=== PATIENT | male | born 1965 | race Caucasian/White ===

== ENCOUNTER 2016-04-16 10:37 | Observation (INO) | payer SELFPAY ==
[~2016-04-16] VITALS: Ht 180.3 cm; Wt 99.0 kg
[2016-04-16 10:40] VITALS: BP 181/115; PULSE 75; RESP 20; TEMP 98.1; O2SAT 97
[2016-04-16 11:09] VITALS: RESP 18; O2SAT 99
[2016-04-16] MEDS ORDERED: KETOROLAC TROMETHAMINE 30 MG/ML (IVP) VIAL IV PUSH ONE (11:15)
[2016-04-16] MEDS ORDERED: SODIUM CHLORIDE 0.9% FLUSH 5 ML FLUSH IVF PRN ×2 (11:15→14:15)
[2016-04-16 11:38] LABS: AUTOMATED NEUTROPHIL # 6.4 TH/MM3 (1.8-7.7); BASOPHIL % 0.5 % (0.0-2.0); EOSINOPHIL # 0.2 TH/MM3 (0-0.4); EOSINOPHIL % 2.3 % (0.0-4.0); HEMATOCRIT 45.4 % (39.0-51.0); HEMO FLAGS DIFF FINAL; LYMPHOCYTE # 2.3 TH/MM3 (1.0-4.8); MEAN CORPUSCULAR HEMOGLOBIN 29.2 PG (27.0-34.0); MEAN CORPUSCULAR HGB CONC 34.8 % (32.0-36.0); MONO % 11.2 % (0.0-8.0); PLATELET COUNT 207 TH/MM3 (150-450); RED CELL DISTRIBUTION WIDTH 12.9 % (11.6-17.2); WHITE BLOOD COUNT 10.1 TH/MM3 (4.0-11.0)
[2016-04-16 11:50] LABS: PROTHROMBIN TIME - PATIENT 10.7 SEC (9.8-11.6)
[2016-04-16] MEDS: RESP: ALBUTEROL 2.5 MG/IPRATROPIUM 0.5 MG NEB (SCH) INH (11:50)
--- NOTE | 2016-04-16 11:50 | RADRPT ---
EXAM DATE/TIME: 04/16/2016 11:47 [place] COMPARISON: No previous studies available for comparison. INDICATIONS : Chest pain, cough and congestion. MEDICAL HISTORY : Hypertension. Chronic obstructive pulmonary disease. Paget's disease. SURGICAL HISTORY : None. ENCOUNTER: Initial ACUITY: 2 days PAIN SCORE: 3/10 LOCATION: chest FINDINGS: PA and lateral views of the chest demonstrate the lungs to be symmetrically aerated without evidence of mass, infiltrate or effusion. The cardiomediastinal contours are unremarkable. Osseous structure s are intact with deformity of multiple right ribs #4 and 5 which suggests either remote trauma or th oracotomy.. CONCLUSION: No acute disease. Pérez Morales MD on April 16, 2016 at 11:48 Board Certified Radiologist. This report was verified electronically.
[2016-04-16 11:56] LABS: ANION GAP 7 MEQ/L (5-15); AST (GOT) 31 U/L (15-37); BICARBONATE 27.7 MEQ/L (21.0-32.0); BLOOD UREA NITROGEN 14 MG/DL (7-18); CHLORIDE 105 MEQ/L (98-107); GLOMERULAR FILTRATION RATE 93 ML/MIN (>89); POTASSIUM 4.4 MEQ/L (3.5-5.1); SODIUM (NA) 140 MEQ/L (136-145)
[2016-04-16 12:01] LABS: ALKALINE PHOSPHATASE 133 U/L (45-117); ALT (GPT) 54 U/L (12-78); TOTAL BILIRUBIN ADULT 0.7 MG/DL (0.2-1.0)
--- NOTE | 2016-04-16 12:58 | PD ---
HPI Chief Complaint: Chest Pain Time Seen by Provider: 11:00 Travel History International Travel<30 days: No Contact w/Intl Traveler<30days: No Traveled to known affect area: No History of Present Illness HPI Patient is a 51-year-old male who comes in complaining of chest pain as well as feeling unwell. He continues to say he just does not feel well, and has a hard time explaining exactly what is going on. He does say he has some right-sided chest pain. He has had a cough with some shortness of breath. He says this has been going on for several days now. His significant other says that she was checking his pulse and his oxygen saturation this weekend because she was worried about him and she noticed that his pulse dropped into the 30s and his oxygen saturation was low. She convinced him to come in to get checked out. [facility] Past Medical History COPD: Yes Diabetes: No Hepatitis: Yes Hypertension: Yes Respiratory: Yes (COPD) Thyroid Disease: Yes Tetanus Vaccination: Unknown Influenza Vaccination: No Past Surgical History Surgical History: No Previous Surgery Social History Alcohol Use: Yes (SOCIAL) Tobacco Use: Yes Substance Use: Yes (MARIJUANA) Allergies-Medications (Allergen,Severity, Reaction): Coded Allergies: No Known Allergies (Unverified , 04/16/16) Reported Meds & Prescriptions Reported Meds & Active Scripts Active Doxycycline Hyclate 100 Mg Tab 100 Mg PO BID 10 Days Prednisone 20 Mg Tab 20 Mg PO BID Review of Systems Except as stated in HPI: all other systems reviewed are Neg General / Constitutional: No: Fever, Chills HENT: No: Headaches, Lightheadedness Cardiovascular: Positive: Chest Pain or Discomfort Respiratory: Positive: Cough, Shortness of Breath Gastrointestinal: No: Nausea, Vomiting Musculoskeletal: Positive: Myalgias Skin: No Rash, No Change in Pigmentation Neurologic: No: Weakness, Dizziness Physical Exam Narrative GENERAL: Awake and alert, in no acute distress. SKIN: Warm and dry. HEAD: Atraumatic. Normocephalic. EYES: Pupils equal and round. No scleral icterus. ENT: Mucous membranes pink and moist. NECK: Trachea midline. No JVD. CARDIOVASCULAR: Regular rate and rhythm. No murmur appreciated. RESPIRATORY: No accessory muscle use. Coarse breath sounds throughout the lungs. Breath sounds equal bilaterally. GASTROINTESTINAL: Abdomen soft, non-tender, nondistended. MUSCULOSKELETAL: No obvious deformities. No clubbing. No cyanosis. No edema. NEUROLOGICAL: Awake and alert. No obvious cranial nerve deficits. Motor grossly within normal limits. Normal speech. PSYCHIATRIC: Appropriate mood and affect; insight and judgment normal. Data Data Last Documented VS Vital Signs Date Time Temp Pulse Resp B/P Pulse Ox O2 Delivery O2 Flow Rate FiO2 04/16/16 11:09 18 99 Room Air 04/16/16 10:56 70 04/16/16 10:40 98.1 181/115 Orders B-Type Natriuretic Peptide (04/16/16 11:06) Complete Blood Count With Diff (04/16/16 11:06) Comprehensive Metabolic Panel (04/16/16 11:06) Prothrombin Time / Inr (Pt) (04/16/16 11:06) Act Partial Throm Time (Ptt) (04/16/16 11:06) Troponin I (04/16/16 11:06) Ecg Monitoring (04/16/16 11:06) Bilateral Bp Monitoring (04/16/16 11:06) Iv Access Insert/Monitor (04/16/16 11:06) Oximetry (04/16/16 11:06) Sodium Chloride 0.9% Flush (Ns Flush) (04/16/16 11:15) Chest, Pa & Lat (04/16/16 11:06) Ketorolac Inj (Toradol Inj) (04/16/16 11:15) Albuterol-Ipratropium Neb (Duoneb Neb) (04/16/16 11:15) Influenzae A/B Antigen (04/16/16 11:06) Electrocardiogram (04/16/16 11:00) Aspirin Chew (Aspirin Chew) (04/16/16 13:00) Admit Order (Ed Use Only) (04/16/16 ) Labs Laboratory Tests Test 04/16/16 11:05 White Blood Count 10.1 TH/MM3 Red Blood Count 5.40 MIL/MM3 Hemoglobin 15.8 GM/DL Hematocrit 45.4 % Mean Corpuscular Volume 84.0 FL Mean Corpuscular Hemoglobin 29.2 PG Mean Corpuscular Hemoglobin 34.8 % Concent Red Cell Distribution Width 12.9 % Platelet Count 207 TH/MM3 Mean Platelet Volume 8.5 FL Neutrophils (%) (Auto) 63.0 % Lymphocytes (%) (Auto) 23.0 % Monocytes (%) (Auto) 11.2 % Eosinophils (%) (Auto) 2.3 % Basophils (%) (Auto) 0.5 % Neutrophils # (Auto) 6.4 TH/MM3 Lymphocytes # (Auto) 2.3 TH/MM3 Monocytes # (Auto) 1.1 TH/MM3 Eosinophils # (Auto) 0.2 TH/MM3 Basophils # (Auto) 0.0 TH/MM3 CBC Comment DIFF FINAL Differential Comment Prothrombin Time 10.7 SEC Prothromb Time International 1.0 RATIO Ratio Activated Partial 26.0 SEC Thromboplast Time Sodium Level 140 MEQ/L Potassium Level 4.4 MEQ/L Chloride Level 105 MEQ/L Carbon Dioxide Level 27.7 MEQ/L Anion Gap 7 MEQ/L Blood Urea Nitrogen 14 MG/DL Creatinine 0.86 MG/DL Estimat Glomerular Filtration 93 ML/MIN Rate Random Glucose 96 MG/DL Calcium Level 8.9 MG/DL Total Bilirubin 0.7 MG/DL Aspartate Amino Transf 31 U/L (AST/SGOT) Alanine Aminotransferase 54 U/L (ALT/SGPT) Alkaline Phosphatase 133 U/L Troponin I LESS THAN 0.02 NG/ML B-Type Natriuretic Peptide 29 PG/ML Total Protein 7.7 GM/DL Albumin 3.9 GM/DL [facility] Medical Decision Making Medical Screen Exam Complete: Yes Emergency Medical Condition: Yes Interpretation(s) ECG shows normal sinus rhythm, no ST elevation or depression. Differential Diagnosis Pneumonia versus bronchitis versus COPD exacerbation versus ACS versus NSTEMI Narrative Course Patient is a 51-year-old male who comes in complaining of chest pain and feeling unwell. Exam shows coarse breath sounds on the lungs. IV established, patient connected to the satellite project site monitor. Patient given DuoNeb nebs. X-ray performed shows no acute abnormalities, old rib fractures present.. Labs sent show no acute abnormalities. Patient given aspirin. He reports minimal relief after duo nebs. Patient will be placed in observation for further management of chest pain. Diagnosis Primary Impression: Chest pain, atypical Admitting Information Admitting Physician Requests: Observation Scripts Doxycycline Hyclate 100 Mg [id number] Mg PO BID 10 Days Prov:Benjy Ortiz 04/16/16 Prednisone 20 Mg Tab20 Mg PO BID #10 TAB Ref 0 Prov:Benjy Ortiz 04/16/16 Chloe Ledezma MD Apr 16, 2016 12:58
[2016-04-16] MEDS ORDERED: ASPIRIN 81 MG CHEW TAB CHEW ONE (13:00)
[2016-04-16 13:33] VITALS: BP 141/87; PULSE 76; RESP 18; O2SAT 98
--- NOTE | 2016-04-16 14:12 | EKG ---
Date Performed: 04/16/2016 Time Performed: 11:00:11 PTAGE: 51 years EKG: Sinus rhythm NONSPECIFIC T-WAVE ABNORMALITY BORDERLINE ECG NO PREVIOUS TRACING DOCTOR: Son Hernandez Interpretating Date/Time 04/16/2016 14:10:50
[2016-04-16] MEDS ORDERED: ALPRAZolam 0.25 MG TAB PO PRN (14:15)
[2016-04-16] MEDS ORDERED: ONDANSETRON HCL 4 MG/2 ML VIAL IV PRN (14:15)
[2016-04-16] MEDS ORDERED: ACETAMINOPHEN/HYDROcodone 325 MG/7.5 MG TAB PO PRN (14:15)
[2016-04-16] MEDS ORDERED: RESP: ALBUTEROL 2.5 MG/IPRATROPIUM 0.5 MG NEB (PRN) INH (14:15)
[2016-04-16] MEDS ORDERED: ACETAMINOPHEN 500 MG CPLT PO PRN (14:15)
[2016-04-16] MEDS ORDERED: methylPREDNISolone SOD SUCC 125 MG/2 ML VIAL IV PUSH ONE (14:15)
[2016-04-16] MEDS ORDERED: RESP: ALBUTEROL 2.5 MG/IPRATROPIUM 0.5 MG NEB (SCH) INH ONE (14:15)
--- NOTE | 2016-04-16 14:21 | HHI.HP ---
HPI Primary Care Physician No Primary Care Physician Chief Complaint Chest pain History of Present Illness This is a 51-year-old male presents to the ED complaining of a right-sided chest pain when he coughs. He states that he has had a productive cough for about a week. The sputum has been soares and brownish. As the warm a couple times really cannot recall having a fever. He states he has been wheezing a lot. He states in the past she was told he has COPD. Denies history of CAD. He has been a little short of breath. No nausea or diaphoresis. He states that his girlfriend is a nurse. He states that she put a pulse oximeter on him and said the numbers were low. She then told him to go to the ED. Review of Systems General: Patient denies fevers, chills recent, and recent travel HEENT: Patient denies headache, sore throat, difficulty swallowing. Cardiovascular: Has the chest discomfort as mentioned above. Denies sensation of heart beating rapidly or irregularly. Denies diaphoresis. No syncope. Respiratory: Patient has been short of breath. He has been coughing for week. He has had a productive cough. He states the color of the sputum has been soares to brown. He has been wheezing. No hemoptysis. He complains of right-sided chest pain when he coughs. GI: Patient denies nausea, vomiting, diarrhea, abdominal pain, bloody stools. Musculoskeletal: Patient denies joint pain or edema. Denies calf pain or edema. Neurovascular: Patient denies numbness, tingling, weakness in extremities. Denies headache. Endocrine: Denies polyuria and polydipsia. Hematologic: Denies easy bruising. Skin: Denies rash or itching. Past Family Social History Allergies: Coded Allergies: No Known Allergies (Unverified , 04/16/16) Past Medical History Paget's disease. Denies hypertension, hyperlipidemia, diabetes, CAD. Past Surgical History Left hip fracture as a child. Hardware has since been removed. Reported Medications Reported Meds & Active Scripts Active No Active Prescriptions or Reported Medications Active Ordered Medications Current Medications Medications (Trade) Dose Ordered Sig/Manoj Route Start Time Stop Time Status Last Admin (NS Flush) 2 ml UNSCH PRN IVF 04/16/16 11:15 04/16/16 11:13 (Duoneb Neb) 1 ampule STAT ONCE INH 04/16/16 14:15 04/16/16 14:16 UNV (SoluMEDROL INJ) 125 mg NOW ONCE IV PUSH 04/16/16 14:15 04/16/16 14:16 UNV Family History 2 brothers of CAD. One at age 50 and the other age of 53. He states that his father had a pacemaker. Social History Patient has slowed down his tobacco intake. For the last 3 months he has been smoking 2-3 cigarettes a day but prior that he smoked about 1-1/2 packs of cigarettes a day for 25 years. He drinks on average sixpack of beer a day. Smokes marijuana once a week. He lives with his girlfriend. Physical Exam Vital Signs Vital Signs Date Time Temp Pulse Resp B/P Pulse Ox O2 Delivery O2 Flow Rate FiO2 04/16/16 13:35 18 04/16/16 13:33 76 18 141/87 98 Room Air 04/16/16 11:09 18 99 Room Air 04/16/16 10:56 70 18 97 Room Air 04/16/16 10:40 98.1 75 20 181/115 97 Room Air Physical Exam GENERAL: This is a well-nourished, well-developed patient, in no apparent distress. Patient speaks in clear complete sentences. Patient is pleasant. He is coughing quite a bit. HEENT: Head is atraumatic and normocephalic. Neck is supple without lymphadenopathy and trachea is midline. No JVD or carotid bruits. CARDIOVASCULAR: Regular rate and rhythm without murmurs, gallops, or rubs. RESPIRATORY: Right-sided chest wall tenderness. He states the same type of discomfort he has when he coughs. There are some scattered rhonchi and wheezing. No use of accessory muscles. GASTROINTESTINAL: Abdomen is nontender, nondistended. Abdomen soft. No obvious pulsatile mass or bruit. No CVA tenderness. Strong femoral pulses bilaterally. Normal bowel sounds in all quadrants. MUSCULOSKELETAL: Patient is moving upper and lower extremities freely. No calf tenderness or edema, no Homans sign. Strong pulses in upper and lower extremities. NEUROLOGICAL: Patient is alert and oriented. Cranial nerves 2-12 are grossly intact. No focal deficits and speech is clear. SKIN: No rash and turgor is normal. Laboratory Laboratory Tests Test 04/16/16 11:05 White Blood Count 10.1 Red Blood Count 5.40 Hemoglobin 15.8 Hematocrit 45.4 Mean Corpuscular Volume 84.0 Mean Corpuscular Hemoglobin 29.2 Mean Corpuscular Hemoglobin 34.8 Concent Red Cell Distribution Width 12.9 Platelet Count 207 Mean Platelet Volume 8.5 Neutrophils (%) (Auto) 63.0 Lymphocytes (%) (Auto) 23.0 Monocytes (%) (Auto) 11.2 Eosinophils (%) (Auto) 2.3 Basophils (%) (Auto) 0.5 Neutrophils # (Auto) 6.4 Lymphocytes # (Auto) 2.3 Monocytes # (Auto) 1.1 Eosinophils # (Auto) 0.2 Basophils # (Auto) 0.0 CBC Comment DIFF FINAL Differential Comment Prothrombin Time 10.7 Prothromb Time International 1.0 Ratio Activated Partial 26.0 Thromboplast Time Sodium Level 140 Potassium Level 4.4 Chloride Level 105 Carbon Dioxide Level 27.7 Anion Gap 7 Blood Urea Nitrogen 14 Creatinine 0.86 Estimat Glomerular Filtration 93 Rate Random Glucose 96 Calcium Level 8.9 Total Bilirubin 0.7 Aspartate Amino Transf 31 (AST/SGOT) Alanine Aminotransferase 54 (ALT/SGPT) Alkaline Phosphatase 133 Troponin I LESS THAN 0.02 B-Type Natriuretic Peptide 29 Total Protein 7.7 Albumin 3.9 Date/Time Procedure Status Source Growth 04/16/16 11:10 Influenza Types A,B Antigen (CHANTE) - Final Complete Nasal Washing NEGATIVE FOR FLU A AND B ANTIGEN.... Result Diagram: 04/16/16 1105 04/16/16 1105 Imaging Last 24 hours Impressions Chest X-Ray 04/16/16 1106 Signed Impressions: Service Date/Time: Saturday, April 16, 2016 11:47 - CONCLUSION: No acute disease. Pérez Morales MD Course Initial EKG is sinus rhythm without significant ST segment depressions or elevations. Patient was given a DuoNeb in the emergency department. He states he started feeling a little better but it made him cough more. Patient was given Solu- Medrol 125 mg IV at this time and another DuoNeb. Assessment and Plan Assessment and Plan * Chest pain: Patient's discomfort appears to be related to respiratory issues. He will be seen by Dr. Huan Nayak of cardiology and the chest pain center. Dr. Nayak will decide if the patient needs further cardiac workup. He has been given Solu-Medrol IV and DuoNeb's. Likely prescriptions of antibiotic and steroids. He needs to quit smoking. He will need to follow-up with local PCP. * Bronchitis: Patient was given antibiotic prescription as well as steroids. He will need to quit smoking. * Tobacco abuse: Patient has been counseled on the importance of smoking cessation. Benjy Ortiz Apr 16, 2016 14:21
[2016-04-16 15:53] LABS: CREATINE KINASE 49 U/L (39-308)
[2016-04-16 16:00] VITALS: BP 142/78; PULSE 74; RESP 18; O2SAT 93
[2016-04-16] MEDS ORDERED: PRED20 PO (16:01)
[2016-04-16] MEDS ORDERED: DOXY100T PO (16:01)
--- NOTE | 2016-04-16 16:02 | HHI.DCPOC ---
Discharge Care Plan Diagnosis: (1) Bronchitis (2) Chest pain, atypical (3) Tobacco abuse Goals to Promote Your Health * To prevent worsening of your condition and complications * To maintain your health at the optimal level Directions to Meet Your Goals Take your medications as prescribed Follow your dietary instruction Follow activity as directed Keep your appointments as scheduled Take your immunizations and boosters as scheduled If your symptoms worsen call your PCP, if no PCP go to Urgent Care Center or Emergency Room Smoking is Dangerous to Your Health. Avoid second hand smoke Call the 24-hour hour crisis hotline for domestic abuse at Benjy Ortiz Apr 16, 2016 16:02
[2016-04-16] MEDS ORDERED: SODIUM CHLORIDE 0.9% FLUSH 5 ML FLUSH IVF SCH (21:00)
[2016-04-16 21:05] VITALS: O2SAT 93
[2016-04-17] MEDS ORDERED: ASPIRIN 325 MG TAB PO SCH (09:00)
--- NOTE | 2016-04-17 12:39 | EKG ---
Date Performed: 04/16/2016 Time Performed: 14:28:47 PTAGE: 51 years EKG: Sinus rhythm NONSPECIFIC T-WAVE ABNORMALITY BORDERLINE ECG Since PREVIOUS TRACING , no significant change noted PREVIOUS TRACIN04/16/2016 11.00 DOCTOR: Kandace Jenkins Interpretating Date/Time 04/17/2016 12:38:39
== END 2016-04-16 17:30 | disposition home or self-care (01) ==
LOC: NEPA 10:37 → NEDA 13:00
PROVIDERS: ADMIT Internal Medicine Cardiovascular Disease; ATTEND Internal Medicine Cardiovascular Disease
DX: J40 Bronchitis, not specified as acute or chronic (principal); R07.89 Other chest pain; I10 Essential (primary) hypertension; F12.90 Cannabis use, unspecified, uncomplicated; F17.200 Nicotine dependence, unspecified, uncomplicated
CPT/HCPCS: 71020; 80053; 82550; 83880; 84484; 85025; 85610; 85730; 87804; 93005; 94640; 94664; 96374; 99285; G0378; J1885; J2930

== ENCOUNTER 2017-04-02 06:07 | Day surgery (SDC) | payer OTHER ==
[~2017-04-02] VITALS: Ht 180.3 cm; Wt 100.0 kg
[~2017-04-02 06:07] MED LIST: DOXY100T PO; PRED20 PO
[2017-04-02 06:47] VITALS: BP 150/93; PULSE 58; RESP 20; TEMP 97.9; O2SAT 96
[2017-04-02] MEDS ORDERED: SODIUM CHLOR 0.45% 1000 ML INJ 1,000 ML IV SCH (07:00)
[2017-04-02 07:51] LABS: AUTOMATED NEUTROPHIL # 4.1 TH/MM3 (1.8-7.7); BASOPHIL # 0.1 TH/MM3 (0-0.2); BASOPHIL % 0.9 % (0.0-2.0); EOSINOPHIL # 0.3 TH/MM3 (0-0.4); EOSINOPHIL % 4.3 % (0.0-4.0); HEMATOCRIT 43.8 % (39.0-51.0); HEMOGLOBIN 15.2 GM/DL (13.0-17.0); LYMPH % 23.6 % (9.0-44.0); LYMPHOCYTE # 1.6 TH/MM3 (1.0-4.8); MEAN CELL VOLUME 84.4 FL (80.0-100.0); MEAN CORPUSCULAR HEMOGLOBIN 29.2 PG (27.0-34.0); MEAN CORPUSCULAR HGB CONC 34.6 % (32.0-36.0); MEAN PLATELET VOLUME 8.3 FL (7.0-11.0); MONO % 12.3 % (0.0-8.0); MONOCYTE # 0.8 TH/MM3 (0-0.9); NEUT % 58.9 % (16.0-70.0); PLATELET COUNT 169 TH/MM3 (150-450); RED BLOOD COUNT 5.19 MIL/MM3 (4.50-5.90); RED CELL DISTRIBUTION WIDTH 12.7 % (11.6-17.2); WHITE BLOOD COUNT 6.9 TH/MM3 (4.0-11.0)
[2017-04-02 08:02] LABS: PROTHROMBIN TIME - PATIENT 10.2 SEC (9.8-11.6)
[2017-04-02] MEDS ORDERED: *RESP: ALBUTEROL 2.5 MG/3 ML NEB (PRN) PERIprocedural Use ONLY NEB ONE (08:36)
[2017-04-02] MEDS ORDERED: DO NOT ADM ANY ANTICOAGULANT DRUGS PRN (08:36)
[2017-04-02] MEDS ORDERED: MIDAZOLAM HCL 2 MG/2 ML VIAL ONE (08:55)
[2017-04-02 09:10] VITALS: BP 136/93; PULSE 74; RESP 18; TEMP 97.9; O2SAT 94
[2017-04-02 09:39] VITALS: BP 124/76; PULSE 66; RESP 18; O2SAT 97
[2017-04-02 10:15] VITALS: BP 118/76; PULSE 66; RESP 18; O2SAT 97
--- NOTE | 2017-04-02 10:15 | MR ---
cc: MANAN HINKLE DATE 04/02/2017 PROCEDURE Fiberoptic bronchoscopy flexible REASON FOR BRONCHOSCOPY Hemoptysis, rule out underlying malignancy, chronic inflammatory process or other. PROCEDURE NOTE Fiberoptic bronchoscopy performed via LMA. Vocal cords intact. Trachea mildly hyperemic. No sharp. Right mainstem bronchus, right upper, middle and lower lobes, left mainstem bronchus, left upper and lower lobes inspected. No obstructive pathology or mass lesion seen. Thick mucous plugs seen and removed throughout the tracheobronchial tree. Washings were obtained from both sides of the tracheobronchial tree for routine TB, fungal culture, as well as cytological exam. Arion biopsies right lower lung obtained for cytological exam which appeared somewhat more hyperemic. Procedure well tolerated. The patient transferred to recovery in stable condition. IMPRESSION 1. Mild tracheobronchitis 2. Excess mucoid secretion and plugging. 3. No evidence of endobronchial obstruction or mass lesion. 4. Samples obtained as above. 5. Procedure well tolerated. 6. The patient transferred to recovery in stable condition. Manan Hinkle MD WWW/ISABELLE /8:24 AM /9:51 AM
== END 2017-04-02 10:31 | disposition home or self-care (01) ==
LOC: HROP 06:07 → HRIP 06:11 → HROP 10:31
PROVIDERS: ATTEND Internal Medicine Sleep Medicine
DX: R04.2 Hemoptysis (principal); J40 Bronchitis, not specified as acute or chronic; E04.1 Nontoxic single thyroid nodule; J44.9 Chronic obstructive pulmonary disease, unspecified; B19.20 Unspecified viral hepatitis C without hepatic coma; Z01.818 Encounter for other preprocedural examination
CPT/HCPCS: 00520; 31625; 85025; 85610; 85730; 87015; 87070; 87102; 87116; 87205; 87206; 88112; 94664; J2250; J3010; J7613

== ENCOUNTER → 2017-04-15 | Day surgery (SDC) | payer OTHER ==
[~2017-04-15] VITALS: Ht 180.3 cm; Wt 107.7 kg
[~2017-04-15] MED LIST changes: +ADVA250A INH; +CEPH-459 PO; +CHLORHEXIDINE GLUCONATE 2 % 1 PACK (2 CLOTHS) TOPICAL PRN; +DO NOT ADM ANY ANTICOAGULANT DRUGS PRN; -DOXY100T PO; +ECASA81 PO; +GLYCOPYRROLATE 1 MG/5 ML SYRINGE IV PUSH ONE; +INSULIN HUMAN REGULAR 1,000 UNITS/10 ML VIAL SQ PRN; +LACTATED RINGER'S 1000 ML IV PRN; +LIDOCAINE HCL 1% PF 5 ML SYRINGE OTHER ONE; +LISI10TA3 PO; +METOPROLOL TARTRATE 25 MG TAB PO PRN; +MIDAZOLAM HCL 2 MG/2 ML VIAL ONE; +NEOSTIGMINE 5 MG/5 ML SYRINGE IV PUSH ONE; +ONDANSETRON HCL 4 MG/2 ML VIAL IV ONE; +ONDANSETRON HCL 4 MG/2 ML VIAL IV PUSH PRN; +PERC5TAB12 PO; +POVIDONE IODINE 5% (ANTISEPSIS KIT) 4 APPLICATIONS EACH NARE PRN; -PRED20 PO; +PRIL20TA2 PO; +PROPOFOL 200 MG/20 ML AMP IV ONE; +ROCURONIUM INJ 50 MG/5 ML SYRINGE IV PUSH ONE; +SODIUM CHLORID 0.9% 500 ML IV PRN; +ceFAZolin INJ 1,000 MG VIAL IV ONE; +oxyCODONE/ACETAMINOPHEN 5 MG/325 MG TAB PO PRN
--- NOTE | 2017-04-15 09:21 | PD.OP ---
Operative Report Date of Surgery: Apr 15, 2017 Preoperative Diagnosis: (1) Bladder mass Postoperative Diagnosis: (1) Bladder mass Procedure: Cystoscopy and transurethral resection of 3 bladder tumors Anesthesia: General Surgeon: Som Rios Stitch Wheeler(s): None Operation and Findings: Indication for procedures: Case of a pleasant 52-year-old gentleman recently discovered to have a small lesion involving his bladder on CT scanning suspicious for bladder cancer and presents now for cystoscopy and possible transurethral resection of bladder tumor. Operative procedure in detail: Patient was brought to the operating room suite and placed supine on the OR table. He was then placed under general anesthesia. He was then repositioned in the dorsolithotomy position and prepped and draped in normal sterile fashion. After an appropriate timeout was undertaken I proceeded with cystoscopic evaluation utilizing the rigid cystoscope with the 20 Italian sheath and 30 lens. The patient was noted to have approximately 1-1/2 cm bladder tumor on a narrow stalk originating from the right posterior wall which was consistent with the lesion seen on CT scanning. There are also 2 smaller less than 0.5 cm lesions involving the trigone suspicious for bladder tumor formation as well. I then exchanged the cystoscope for the resectoscope with a 24 Italian Cutting Loop and the patient underwent transurethral resection of the 3 bladder tumors. The cystoscope was reintroduced and a cup biopsy was taken of the tumor base from the larger tumor that had originated from the right posterior wall. This was sent off in a separate specimen container. The bladder was drained of all irrigant fluid and a 16 Italian 5 cc Latham catheter was placed and connected to gravity drainage. The patient tolerated the procedures without complications and was transferred to the PACU in satisfactory condition. Som Rios MD Apr 15, 2017 09:21
[2017-04-15 10:44] VITALS: BP 151/76; PULSE 52; RESP 29; TEMP 97.8; O2SAT 97
== END | disposition home or self-care (01) ==
LOC: HSDC 06:03
PROVIDERS: ATTEND Urology
DX: C67.9 Malignant neoplasm of bladder, unspecified (principal); I10 Essential (primary) hypertension; J44.9 Chronic obstructive pulmonary disease, unspecified
CPT/HCPCS: 88305; 88307; J0690; J2250; J2405; J2710; J3010; J7120